=== PATIENT | male | born 1985 | race American Indian/Alaskan Native ===

== ENCOUNTER 2020-02-22 05:46 | Emergency (ER) | payer SELFPAY ==
[2020-02-22 05:54] VITALS: BP 156/79
--- NOTE | 2020-02-22 06:27 | Emergency Department Report ---
Chief Complaint: Nosebleed Stated Complaint: NOSE BLEED X 2 DAYS Time Seen by Provider: 02/22/20 06:22 - HPI History of Present Illness: 35-year-old -[place] male with a past medical history of seasonal allergies presents the emergency room for nosebleed that is intermittent x2 days. Patient states that it has stopped just prior to arrival. Patient denies any trauma denies any nasal congestion runny nose. Patient reports he did take ibuprofen yesterday evening. He denies any pain no headache no shortness of breath or chest pain - Exam Vital Signs: Vital Signs 02/22/20 02/22/20 05:50 06:06 Temperature 122.0 F H 97.2 F L Pulse Rate 75 Respiratory 18 Rate Blood Pressure 156/79 O2 Sat by Pulse 97 Oximetry Physical Exam: Patient is alert and oriented x3 in no acute distress Bilateral nares no active bleeding appreciate dried blood no polyps appreciated. Oral mucosa moist MSE screening note: Focused history and physical exam performed. Due to findings the following was ordered: 35-year-old -[place] male with a past medical history of seasonal allergies presents the emergency room for nosebleed that is intermittent x2 days. Patient states that it has stopped just prior to arrival. Patient denies any trauma denies any nasal congestion runny nose. Patient reports he did take ibuprofen yesterday evening. He denies any pain no headache no shortness of breath or chest pain. Recommend [id number] Afrin twice a day for the next 3 days. Follow-up with the primary care provider. ED Disposition for MSE Clinical Impression: Epistaxis Disposition: Z- MED SCREENING EXAM-LEFT Is pt being admited?: No Does the pt Need Aspirin: No Condition: Stable Instructions: Epistaxis (ED) Additional Instructions: Recommend [id number] Afrin twice a day for the next 3 days. Follow-up with the primary care provider. Oxymetazoline is the other name for Afrin spray. Referrals: PRIMARY CARE, [Primary Care Provider] - 3-5 Days Forms: Work/School Release Form(ED)
== END 2020-02-22 06:32 | disposition left against medical advice (07) ==
LOC: ED 05:46
DX: R04.0 Epistaxis (principal)
CPT/HCPCS: 99282